=== PATIENT | female | born 1990 | race Caucasian/White ===

== ENCOUNTER 2020-07-01 16:51 | Inpatient (IN) | payer MEDICAID ==
[~2020-07-01] VITALS: Ht 160 cm; Wt 42.4 kg
[2020-07-01 17:12] VITALS: BP 153/132
[2020-07-01 17:18] LABS: URINE BILIRUBIN NEGATIVE (Negative); URINE BLOOD TRACE (Negative); URINE CLARITY CLEAR; URINE COLOR YELLOW; URINE GLUCOSE-RANDOM 3+ (Negative); URINE KETONES 1+ (Negative); URINE LEUKOCYTES TRACE (Negative); URINE NITRITE NEGATIVE (Negative); URINE PROTEIN TRACE (Negative); URINE SPECIFIC GRAVITY 1.025 (1.005-1.030); URINE UROBILINOGEN 0.2 E.U./dl (0.2-1.0)
[2020-07-01 17:37] LABS: AMP/METHAMP POSITIVE (Negative); BARBITURATES Negative (Negative); BENZODIAZEPINES Negative (Negative); COCAINE Negative (Negative); METHADONE Negative (Negative); OPIATES Negative (Negative); PCP Negative (Negative); SQUAMOUS >10 Many /LPF (0-3); THC Negative (Negative)
[2020-07-01 17:38] LABS: BACTERIA >30 Many /HPF (None Seen); MUCUS None Seen strn/LPF (None Seen); URINE WBC 6-15 Few /HPF (0-5); YEAST Present (None Seen)
[2020-07-01 17:39] LABS: CASTS None Seen /LPF (None Seen); CRYSTALS None Seen /LPF (None Seen); URINE RBC 0-2 Rare /HPF (0-2)
[2020-07-01 18:04] LABS: ALCOHOL < 10 mg/dL (<10); CREATININE 1.9 mg/dL (0.6-1.3); POTASSIUM 4.5 mmol/L (3.5-5.1); SALICYLATE < 2.8 mg/dL (2.8-20.0)
[2020-07-01 18:05] LABS: ALBUMIN 3.7 g/dL (3.4-5.0); TOTAL BILIRUBIN 0.4 mg/dL (<0.1-1.0); TOTAL PROTEIN 7.1 g/dL (6.4-8.2)
[2020-07-01 18:06] LABS: ACETAMINOPHEN < 2 ug/mL (10-30)
[2020-07-01 18:12] LABS: HEMATOCRIT 33.6 % (37.0-47.0); HEMOGLOBIN 11.4 gm/dL (12.0-15.0); MCH 29.8 pg (26.0-34.0); MCV 87.8 fL (80.0-100.0); MPV 7.4 fl. (7.2-11.1); RBC 3.83 mil/uL (4.20-5.00); RDW-CV 14.6 % (10.5-14.5); WBC 4.7 thou/uL (4.0-11.0)
[2020-07-01 20:04] LABS: BE -3.7 mmol/L (-2 to +3); PCO2 VENOUS 46.9 mmHg (41.0-51.0); PO2 VENOUS 76.1 mmHg (35.0-45.0)
[2020-07-01] MEDS ORDERED: GABAPENTIN (20:34)
[2020-07-01] MEDS ORDERED: REGLAN (20:34)
[2020-07-01] MEDS ORDERED: LANTUS (20:35)
[2020-07-01] MEDS ORDERED: [UNRECOGNIZED DRUG - CODE] (20:35)
[2020-07-01] MEDS ORDERED: NOVOLOG (20:35)
[2020-07-01] MEDS ORDERED: PANTAPRAZOLE (20:36)
[2020-07-01] MEDS ORDERED: XANAX (20:36)
[2020-07-01] MEDS ORDERED: BUSPAR (20:36)
[2020-07-01] MEDS ORDERED: LEXIPRO (20:42)
[2020-07-01] MEDS ORDERED: HUMALOG100 UNIT/1 SUBQ (23:05)
[2020-07-01] MEDS ORDERED: LANTUS SUBQ (23:05)
[2020-07-01] MEDS ORDERED: CREON DR 6,0001 EACH PO (23:06)
[2020-07-01] MEDS ORDERED: CLONAZEPAM 0.50.5 M1 PO ×2 (23:07)
[2020-07-01] MEDS ORDERED: LEXAPRO20 MG PO (23:08)
[2020-07-01] MEDS ORDERED: REGLAN 5 MG TAB5 MG PO (23:08)
[2020-07-01] MEDS ORDERED: OMEPRAZOLE 20 M20 M1 PO (23:08)
[2020-07-01] MEDS ORDERED: BUPROPION XL300 MG PO (23:09)
[2020-07-01] MEDS ORDERED: GRALISE600 MG PO (23:10)
[2020-07-02] VITALS (14 sets, daily range): BP systolic 130–197; BP diastolic 76–116
--- NOTE | 2020-07-02 09:35 | EKG ---
[place] [address] ELECTROCARDIOGRAM REPORT Name: PRESTONMICHELLE Room: [address] ADM IN .R.#: [id number] Admission: 07/02/20 Attend Phys: Aleksey Velasquez, Discharge: Date of : 89 Date of Service: 07/01/20 1705 Report #: [id number] THIS REPORT FOR: //name// [facility] [place] ED Test Date: 2020-07-01 Test Time: 17:05:17 Pat Name: MICHELLE JOHNSTON Department: Room: [facility] Gender: F [employer]er: [facility] : 1990 Requested By: Kassidy Fragoso Order Number: [id number] MD: Fredy Goodman Measurements Intervals [place] Rate: 119 P: 74 [place]: 139 QRS: 84 QRSD: 105 T: 22 QT: 343 QTc: 483 Interpretive Statements Sinus tachycardia Low voltage, extremity leads Borderline prolonged QT interval No previous ECG available for comparison Electronically Signed On 07-02-2020 9:34:49 CDT by Fredy Goodman [email or web address] <ELECTRONICALLY SIGNED> By: Fredy Goodman MD, [facility] 07/02/20 0934 1705 1705 Fredy Goodman MD, [facility] /EPI
[2020-07-03] VITALS (15 sets, daily range): BP systolic 145–187; BP diastolic 93–116
[2020-07-03 02:50] LABS: HEMATOCRIT 39.8 % (37.0-47.0); MCHC 34.7 g/dL (28.0-37.0); MCV 86.6 fL (80.0-100.0); RBC 4.59 mil/uL (4.20-5.00); RDW-CV 15.2 % (10.5-14.5); WBC 11.8 thou/uL (4.0-11.0)
[2020-07-03 03:05] LABS: HEMOGLOBIN 13.8 gm/dL (12.0-15.0)
[2020-07-03 03:10] LABS: ALBUMIN 3.7 g/dL (3.4-5.0); CALCIUM 9.8 mg/dL (8.5-10.1); CREATININE 1.3 mg/dL (0.6-1.3); POTASSIUM 4.1 mmol/L (3.5-5.1); TOTAL BILIRUBIN 0.4 mg/dL (<0.1-1.0); TOTAL PROTEIN 7.5 g/dL (6.4-8.2)
[2020-07-03 06:22] LABS: BE -6.7 mmol/L (-2 to +3); PCO2 40.6 mmHg (35.0-45.0)
[2020-07-03 06:24] LABS: PO2 38.7 mmHg (75.0-100.0); pH 7.296 (7.340-7.450)
[2020-07-03 07:10] LABS: BE -2.5 mmol/L (-2 to +3); PCO2 41.7 mmHg (35.0-45.0); PO2 105.4 mmHg (75.0-100.0); pH 7.357 (7.340-7.450)
[2020-07-04] VITALS (38 sets, daily range): BP systolic 109–178; BP diastolic 67–109
[2020-07-04 05:49] LABS: HEMATOCRIT 37.9 % (37.0-47.0); HEMOGLOBIN 12.7 gm/dL (12.0-15.0); MCH 29.6 pg (26.0-34.0); MCHC 33.5 g/dL (28.0-37.0); MCV 88.5 fL (80.0-100.0); MPV 7.2 fl. (7.2-11.1); RBC 4.29 mil/uL (4.20-5.00); RDW-CV 15.6 % (10.5-14.5)
[2020-07-04 06:11] LABS: CREATININE 1.4 mg/dL (0.6-1.3); MAGNESIUM 1.7 mg/dL (1.8-2.4); POTASSIUM 3.2 mmol/L (3.5-5.1); TOTAL BILIRUBIN 0.3 mg/dL (<0.1-1.0); TOTAL PROTEIN 6.7 g/dL (6.4-8.2)
[2020-07-04 10:18] LABS: CALCIUM 9.6 mg/dL (8.5-10.1); CREATININE 1.2 mg/dL (0.6-1.3); POTASSIUM 3.6 mmol/L (3.5-5.1)
[2020-07-05] VITALS (29 sets, daily range): BP systolic 85–160; BP diastolic 64–116
[2020-07-05 04:32] LABS: ALBUMIN 3.1 g/dL (3.4-5.0); CALCIUM 8.8 mg/dL (8.5-10.1); CREATININE 1.1 mg/dL (0.6-1.3); MAGNESIUM 2.1 mg/dL (1.8-2.4); POTASSIUM 3.2 mmol/L (3.5-5.1); TOTAL BILIRUBIN 0.4 mg/dL (<0.1-1.0); TOTAL PROTEIN 6.7 g/dL (6.4-8.2)
[2020-07-05 05:27] LABS: BE -3.3 mmol/L (-2 to +3); PCO2 34.3 mmHg (35.0-45.0)
[2020-07-05 05:29] LABS: PO2 131.3 mmHg (75.0-100.0)
[2020-07-06] VITALS (24 sets, daily range): BP systolic 99–149; BP diastolic 65–94
[2020-07-06 06:34] LABS: HEMATOCRIT 37.8 % (37.0-47.0); HEMOGLOBIN 12.4 gm/dL (12.0-15.0); MCH 28.6 pg (26.0-34.0); MCHC 32.7 g/dL (28.0-37.0); MCV 87.2 fL (80.0-100.0); MPV 7.2 fl. (7.2-11.1); RBC 4.33 mil/uL (4.20-5.00); RDW-CV 15.3 % (10.5-14.5); WBC 9.1 thou/uL (4.0-11.0)
[2020-07-06 06:53] LABS: ALBUMIN 2.8 g/dL (3.4-5.0); CALCIUM 8.6 mg/dL (8.5-10.1); POTASSIUM 4.5 mmol/L (3.5-5.1); TOTAL BILIRUBIN 0.3 mg/dL (<0.1-1.0); TOTAL PROTEIN 6.2 g/dL (6.4-8.2)
[2020-07-06 18:18] LABS: BE 0.1 mmol/L (-2 to +3); PCO2 VENOUS 44.1 mmHg (41.0-51.0); PO2 VENOUS 55.2 mmHg (35.0-45.0)
[2020-07-07] VITALS (26 sets, daily range): BP systolic 70–153; BP diastolic 34–94
[2020-07-07 02:07] LABS: HEMOGLOBIN 12.7 gm/dL (12.0-15.0); MCH 28.6 pg (26.0-34.0); MCHC 32.7 g/dL (28.0-37.0); MCV 87.6 fL (80.0-100.0); MPV 7.2 fl. (7.2-11.1); RBC 4.45 mil/uL (4.20-5.00); WBC 9.9 thou/uL (4.0-11.0)
[2020-07-07 02:20] LABS: ALBUMIN 2.7 g/dL (3.4-5.0); CALCIUM 8.7 mg/dL (8.5-10.1); CREATININE 1.1 mg/dL (0.6-1.3); MAGNESIUM 1.9 mg/dL (1.8-2.4); POTASSIUM 4.6 mmol/L (3.5-5.1); TOTAL BILIRUBIN 0.4 mg/dL (<0.1-1.0); TOTAL PROTEIN 6.3 g/dL (6.4-8.2)
[2020-07-08] VITALS (14 sets, daily range): BP systolic 126–152; BP diastolic 76–105
[2020-07-08 06:11] LABS: HEMATOCRIT 36.2 % (37.0-47.0); HEMOGLOBIN 11.9 gm/dL (12.0-15.0); MCH 29.1 pg (26.0-34.0); MCV 88.4 fL (80.0-100.0); MPV 7.6 fl. (7.2-11.1); RBC 4.09 mil/uL (4.20-5.00); RDW-CV 14.8 % (10.5-14.5); WBC 9.5 thou/uL (4.0-11.0)
[2020-07-08 07:22] LABS: ALBUMIN 2.7 g/dL (3.4-5.0); CALCIUM 8.6 mg/dL (8.5-10.1); CREATININE 1.2 mg/dL (0.6-1.3); MAGNESIUM 1.8 mg/dL (1.8-2.4); TOTAL BILIRUBIN 0.3 mg/dL (<0.1-1.0); TOTAL PROTEIN 6.3 g/dL (6.4-8.2)
[2020-07-09] VITALS (9 sets, daily range): BP systolic 96–135; BP diastolic 58–89
[2020-07-10] VITALS (13 sets, daily range): BP systolic 103–159; BP diastolic 50–102
[2020-07-11] VITALS (7 sets, daily range): BP systolic 85–133; BP diastolic 49–91
[2020-07-11 11:19] LABS: HEMATOCRIT 33.3 % (37.0-47.0); HEMOGLOBIN 11.2 gm/dL (12.0-15.0); MCH 29.1 pg (26.0-34.0); MCHC 33.8 g/dL (28.0-37.0); MCV 86.3 fL (80.0-100.0); MPV 7.3 fl. (7.2-11.1); RBC 3.86 mil/uL (4.20-5.00); RDW-CV 14.3 % (10.5-14.5); WBC 9.7 thou/uL (4.0-11.0)
[2020-07-11 11:31] LABS: ALBUMIN 2.6 g/dL (3.4-5.0); ALKALINE PHOSPHATASE 128 U/L (46-116); ANION GAP 3 mmol/L (7-16); BUN 23 mg/dL (7-18); CALCIUM 8.7 mg/dL (8.5-10.1); CHLORIDE 103 mmol/L (98-107); CHOLESTEROL 134 mg/dL (<200); CO2 32 mmol/L (21-32); CREATININE 1.3 mg/dL (0.6-1.3); GLUCOSE 159 mg/dL (70-99); HDL CHOLESTEROL 38 mg/dL (>40); LDL CHOLESTEROL 60 mg/dL (<100); POTASSIUM 4.1 mmol/L (3.5-5.1); SERUM ASSESSMENT Clear; SGOT 15 U/L (15-37); SGPT 24 U/L (30-65); SODIUM 138 mmol/L (136-145); TC:HDL 3.5 Ratio (Not establshd); TOTAL BILIRUBIN 0.2 mg/dL (<0.1-1.0); TOTAL PROTEIN 6.2 g/dL (6.4-8.2); TRIGLYCERIDE 180 mg/dL (<150); VLDL 36 mg/dL (<40)
[2020-07-12 08:00] VITALS: BP 128/81
[2020-07-12] MEDS ORDERED: NEURONTIN 300M300 M2 PO (09:22)
[2020-07-12 16:30] VITALS: BP 112/70
[2020-07-12 16:47] VITALS: BP 113/71
[2020-07-12 21:00] VITALS: BP 111/86
[2020-07-13 07:43] LABS: HEMATOCRIT 34.1 % (37.0-47.0); HEMOGLOBIN 10.9 gm/dL (12.0-15.0); MCH 28.3 pg (26.0-34.0); MCV 88.5 fL (80.0-100.0); MPV 8.1 fl. (7.2-11.1); RBC 3.85 mil/uL (4.20-5.00); WBC 19.7 thou/uL (4.0-11.0)
[2020-07-13 07:58] LABS: CALCIUM 8.9 mg/dL (8.5-10.1); CREATININE 1.5 mg/dL (0.6-1.3); POTASSIUM 5.8 mmol/L (3.5-5.1)
[2020-07-13 08:37] LABS: AMP/METHAMP Negative (Negative); BARBITURATES Negative (Negative); BENZODIAZEPINES POSITIVE (Negative); COCAINE Negative (Negative); METHADONE Negative (Negative); OPIATES Negative (Negative); PCP Negative (Negative); THC Negative (Negative)
[2020-07-13 10:00] VITALS: BP 119/71
[2020-07-13 16:00] VITALS: BP 79/41
[2020-07-13 22:00] VITALS: BP 119/83
[2020-07-14 00:52] VITALS: BP 100/57
[2020-07-14 07:53] VITALS: BP 115/68
[2020-07-14 12:19] LABS: HEMOGLOBIN 12.4 gm/dL (12.0-15.0); MCH 28.3 pg (26.0-34.0); MCHC 32.6 g/dL (28.0-37.0); MCV 86.7 fL (80.0-100.0); MPV 7.8 fl. (7.2-11.1); NUCLEATED RBCS 0 /100WBC; RBC 4.38 mil/uL (4.20-5.00); RDW-CV 14.6 % (10.5-14.5)
[2020-07-14 12:29] LABS: PLATELET COUNT* 479 thou/uL (150-400)
[2020-07-14 12:33] LABS: ALBUMIN 3.3 g/dL (3.4-5.0); CALCIUM 10.1 mg/dL (8.5-10.1); CREATININE 2.2 mg/dL (0.6-1.3); TOTAL BILIRUBIN 0.2 mg/dL (<0.1-1.0); TOTAL PROTEIN 7.9 g/dL (6.4-8.2)
[2020-07-14 13:24] LABS: ABSOLUTE LYMPHOCYTES 4.2 thou/uL (0.8-5.3); ABSOLUTE MONOCYTES 1.1 thou/uL (0.0-1.2); ABSOLUTE NEUTROPHILS 15.8 thou/uL (1.6-8.1)
[2020-07-14 13:25] LABS: ANISOCYTOSIS 1+; MICROCYTES 2+; PLATELET ESTIMATE INCREASED
[2020-07-14 13:26] LABS: TOXIC GRANULATION 2+
[2020-07-14 14:33] VITALS: BP 110/71
[2020-07-14 16:00] VITALS: BP 139/67
[2020-07-14 18:57] LABS: URINE BILIRUBIN NEGATIVE (Negative); URINE BLOOD TRACE (Negative); URINE COLOR YELLOW; URINE GLUCOSE-RANDOM 3+ (Negative); URINE KETONES TRACE (Negative); URINE LEUKOCYTES-REFLEX 1+ (Negative); URINE NITRITE-REFLEX NEGATIVE (Negative); URINE PROTEIN 1+ (Negative); URINE SPECIFIC GRAVITY 1.025 (1.005-1.030); URINE UROBILINOGEN 0.2 E.U./dl (0.2-1.0)
[2020-07-14 18:59] LABS: URINE CLARITY CLOUDY
[2020-07-14 19:05] LABS: AMP/METHAMP Negative (Negative); BACTERIA-REFLEX >30 Many /HPF (None Seen); BARBITURATES Negative (Negative); BENZODIAZEPINES POSITIVE (Negative); CASTS None Seen /LPF (None Seen); COCAINE Negative (Negative); CRYSTALS None Seen /LPF (None Seen); METHADONE Negative (Negative); OPIATES Negative (Negative); PCP Negative (Negative); SQUAMOUS 0-3 Few /LPF (0-3); THC Negative (Negative); URINE RBC 0-2 Rare /HPF (0-2); URINE WBC-REFLEX >25 Many /HPF (0-5)
[2020-07-14 19:30] VITALS: BP 132/71
[2020-07-15] VITALS: BP 139/72
[2020-07-15 08:00] VITALS: BP 133/49
[2020-07-15 09:48] LABS: ABSOLUTE BASOPHILS 0.1 thou/uL (0.0-0.2); ABSOLUTE LYMPHOCYTES 1.2 thou/uL (0.8-5.3); ABSOLUTE MONOCYTES 0.8 thou/uL (0.0-1.2); ABSOLUTE NEUTROPHILS 14.3 thou/uL (1.6-8.1); BASOPHILS 0.7 %; HEMATOCRIT 33.3 % (37.0-47.0); LYMPHOCYTES 7.6 %; MCH 28.7 pg (26.0-34.0); MCHC 30.9 g/dL (28.0-37.0); MONOCYTES 4.6 %; MPV 8.1 fl. (7.2-11.1); NUCLEATED RBCS 0 /100WBC; PLATELET COUNT* 466 thou/uL (150-400); POLYS 87.1 %; RBC 3.58 mil/uL (4.20-5.00); RDW-CV 15.5 % (10.5-14.5); WBC 16.4 thou/uL (4.0-11.0)
[2020-07-15 09:49] LABS: HEMOGLOBIN 10.3 gm/dL (12.0-15.0); MCV 92.9 fL (80.0-100.0)
[2020-07-15 09:58] LABS: ALBUMIN 2.6 g/dL (3.4-5.0); CREATININE 2.2 mg/dL (0.6-1.3); MAGNESIUM 2.1 mg/dL (1.8-2.4); PHOSPHORUS* 3.9 mg/dL (2.5-4.9); POTASSIUM 3.6 mmol/L (3.5-5.1); TOTAL BILIRUBIN 0.4 mg/dL (<0.1-1.0); TOTAL PROTEIN 6.7 g/dL (6.4-8.2)
[2020-07-15 09:59] LABS: CALCIUM 8.1 mg/dL (8.5-10.1)
[2020-07-15 12:30] VITALS: BP 131/75
--- NOTE | 2020-07-17 18:51 | CON ---
[address] [address] CONSULTATION Name: MICHELLE JOHNSTON Room: [address] IN M.R.#: [id number] Admission: 07/02/20 Attend Phys: Aleksey Velasquez MD Discharge: 07/15/20 Date of : [birth year] Report #: [id number] THIS REPORT FOR: //name// cc: SHRAVAN - No family physician/PCP FAM - No family physician/PCP ~ THIS REPORT FOR: //name// CC: [facility] physician/PCP Aleksey Velasquez DATE OF SERVICE: 07/02/2020 HISTORY OF PRESENT ILLNESS: This 29-year-old female patient who was seen by me for altered mental status. I talked to the nurses and a gentleman who said he is the patient's . He has been identified differently in the records. I reviewed the patient's records. This patient is admitted with altered mental status. Apparently, her blood sugar goes low quite often. She had this jerking, but not to this extent before according to the . Here, it looks like her blood sugar has fallen less than 30 twice. It has fluctuated. It has always been brittle because she is type 1 diabetic. She also has drug screen, which is positive for amphetamines. I tried to get more history from him, but he avoided that history. It looks like she has trouble with using significant amount of drugs, but apparently not much with alcohol according to him. 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 She had gastroparesis, history of renal failure, history of neuropathy, pyelonephritis. She uses drugs pretty often, but further history I cannot get. This was a relevant 14-point review of system. PAST MEDICAL HISTORY: Positive for hypoglycemia and drug abuse. FAMILY HISTORY: Apparently negative for type 1 diabetes. SOCIAL HISTORY: She does not drink alcohol, but uses drugs. PHYSICAL EXAMINATION: Very limited. She initially would not say anything and will not open her eyes. Then, she became agitated and tried to jump out of the bed. The record is indicated that she has done the same thing in the Emergency Room and she fell on her face. They did do a CT scan of the head in the Emergency Room and that does not show any abnormality, I do not see any pictures of her spine. I cannot tell whether she is having tenderness and nurses says she moves both sides. To me, it is very difficult to tell because she becomes very agitated and tried to get out of the bed. Blood pressure is 153/94, respirations 15, pulse is 103. LABORATORY DATA: White count is 4.7. [place] [address] CONSULTATION Name: MICHELLE JOHNSTON Room: [address] IN M.R.#: [id number] Admission: 07/02/20 Attend Phys: Aleksey Velasquez MD Discharge: 07/15/20 Date of : 89 Report #: [id number] IMPRESSION AND PLAN: Severe encephalopathy because of severe hypoglycemia as well as use of hard drugs. I will recommend clearing her spine, but I do not think it is possible in this circumstances because she basically become violent and will hurt herself, but I did order a portable crosstable C-spine that has not as accurate as CT of the spine is, but since it was not done in Emergency Room, I was here and I went ahead and ordered that. According to the nurses, she moves everything and main thing is going to be managing her systemic problems. I did review her EEG, which does show slowing, but activity is present. Thank you very much for this referral. We will follow the patient along with you from neurological issues and we will also discuss patient with Dr. Patiño. <ELECTRONICALLY SIGNED> By: Fox Romero MD 07/17/201850 18 1853Pkristina Romero MD /nt
--- NOTE | 2020-07-17 18:51 | EEG ---
[address] [address] EEG STUDY REPORT Name: MICHELLE JOHNSTON Room: [address] IN M.R.#: [id number] Admission: 07/02/20 Attend Phys: Aleksey Velasquez MD Discharge: 07/15/20 Date of : 89 Report #: [id number] THIS REPORT FOR: //name// CC: FAM physician/PCP Aleksey Velasquez This EEG was done by placing the electrode by standard 10-20 system of electrode placement. Both referential and sequential montages were used for recording. Background activity in this patient's EEG is about 7-8 Hz and 30 mV. It is intermixed with a lot of slowing on both sides. Photic stimulation is unremarkable. Throughout the record, no active epileptiform activity was noticed. IMPRESSION AND PLAN: This patient's EEG continued to demonstrate intermixed slowing. That is a nonspecific finding, which can occur with encephalopathy, effect of psychotropic medication, dementia, etc. Clinical correlation is recommended. <ELECTRONICALLY SIGNED> By: Fox Romero MD 07/17/20 1851 0936 [id number] Romero MD /nt
--- NOTE | 2020-07-17 18:51 | EEG ---
[address] [address] EEG STUDY REPORT Name: MICHELLE JOHNSTON Room: [address] IN M.R.#: [id number] Admission: 07/02/20 Attend Phys: Aleksey Velasquez MD Discharge: 07/15/20 Date of : 89 Report #: [id number] THIS REPORT FOR: //name// CC: FAM physician/PCP Aleksey Velasquez DATE OF SERVICE: 07/02/2020 This patient is being evaluated for altered mental status. EEG was done by placing the electrode by standard 10-20 system of electrode placement. Both referential and sequential montages were used for recording. Background activity in this patient's EEG is about 8 Hz and 30 microvolts. Photic stimulation is unremarkable. EEG continued to be intermixed with theta range slowing on both sides. No active epileptiform activity was noticed. IMPRESSION: This is an abnormal EEG because it is intermixed with theta range slowing on both sides. That is a nonspecific abnormality, which can occur with encephalopathy, effect of psychotropic medication, dementia, etc. No active epileptiform activity was noticed. Thank you very much for this referral. <ELECTRONICALLY SIGNED> By: Fox Romero MD 07/17/20 1851 1809 1818Parpapa Romero MD /nt
== END 2020-07-15 13:15 | disposition short-term general hospital (02) | DRG 637 ==
LOC: EDBD 16:51 → M.ERS 16:51 → M.TBA-ER 07-02 06:25 → M.ICU 07-02 07:48 → M.3W 07-11 19:07 → M.ORTHSURG 07-12 18:03 → M.2W 07-13 08:20
PROVIDERS: Family Medicine; Internal Medicine; Personal Emergency Response Attendant; ADMIT Internal Medicine; ATTEND Internal Medicine
DX: E10.649 Type 1 diabetes mellitus with hypoglycemia without coma (principal); G93.41 Metabolic encephalopathy; A41.9 Sepsis, unspecified organism; N39.0 Urinary tract infection, site not specified; E87.5 Hyperkalemia; N17.9 Acute kidney failure, unspecified; E10.10 Type 1 diabetes mellitus with ketoacidosis without coma; F15.129 Other stimulant abuse with intoxication, unspecified; F17.200 Nicotine dependence, unspecified, uncomplicated; N18.9 Chronic kidney disease, unspecified; E10.40 Type 1 diabetes mellitus with diabetic neuropathy, unspecified; E10.22 Type 1 diabetes mellitus with diabetic chronic kidney disease; Z20.828 Contact with and (suspected) exposure to other viral communicable diseases; Z79.4 Long term (current) use of insulin; Z79.899 Other long term (current) drug therapy